=== PATIENT | male | born 1990 | race Caucasian/White ===

== ENCOUNTER 2016-06-06 14:24 | Emergency (ER) | payer BC ==
[2016-06-06 15:32] LABS: BASO % 0.3 % (0.0-1.0); EOS # 0.1 K/mm3 (0.0-0.50); EOS % 0.4 % (0.0-3.0); LARGE UNSTAINED CELL # 0.5 K/mm3 (0.0-0.4); LARGE UNSTAINED CELL % 3.4 % (0.0-4.0); LYMPH # 1.3 K/mm3 (1.5-6.5); LYMPH % 9.1 % (24.0-44.0); MEAN CORPUSCULAR HEMOGLOBIN 32.1 pg (27.0-33.0); MEAN CORPUSCULAR HGB CONC 35.8 g/dl (32.0-36.5); MEAN CORPUSCULAR VOLUME 89.5 fl (80.0-96.0); NEUTROPHILS # 11.5 K/mm3 (1.8-7.7); NEUTROPHILS % 79.7 % (36.0-66.0); PLATELET COUNT, AUTOMATED 175 k/mm3 (150-450); RED CELL DISTRIBUTION WIDTH 11.9 % (11.5-14.5); WHITE BLOOD COUNT 14.5 K/mm3 (4.0-10.0)
[2016-06-06 15:49] LABS: ANION GAP 9 MEQ/L (8-16); BLOOD UREA NITROGEN 14 MG/DL (7-18); CALCIUM LEVEL 8.7 MG/DL (8.5-10.1); CARBON DIOXIDE LEVEL 27 MEQ/L (21-32); CHLORIDE LEVEL 103 MEQ/L (98-107); CREATININE FOR GFR 1.17 MG/DL (0.70-1.30); GLOMERULAR FILTRATION RATE > 60.0 (>60); GLUCOSE, FASTING 97 MG/DL (70-105); POTASSIUM SERUM 4.5 MEQ/L (3.5-5.1); SODIUM LEVEL 139 MEQ/L (136-145)
[2016-06-06] MEDS ORDERED: LIDOCAINE 2% MDV 20 ML VIAL As Ordered ONE (16:22)
[2016-06-06 16:34] LABS: ALBUMIN/GLOBULIN RATIO 1.14 (1.00-1.93); ALKALINE PHOSPHATASE 67 U/L (45-117); ALT/SGPT 39 U/L (12-78); AST/SGOT 15 U/L (15-37); BILIRUBIN,DIRECT 0.1 MG/DL (0.0-0.2); BILIRUBIN,TOTAL 0.5 MG/DL (0.2-1.0); TOTAL PROTEIN 7.5 GM/DL (6.4-8.2)
[2016-06-06] MEDS ORDERED: ONDANSETRON 4MG/2ML VIAL (J2405) As Ordered ONE (17:03)
[2016-06-06] MEDS ORDERED: MORPHINE 2 MG/ML 1ML SYRINGE As Ordered ONE (17:03)
[2016-06-06 17:22] LABS: GLUCOSE CSF 65 MG/DL (40-75)
[2016-06-06] MEDS ORDERED: ISOVUE-370 76% 100ML VIAL (Q9967) As Ordered ONE (17:32)
[2016-06-06 17:36] LABS: RBC CSF AUTO 35 /mm3 (0-0); WBC CSF AUTO 1 /mm3 (0-10)
[2016-06-06 17:37] LABS: APPEARANCE, CSF CLEAR (CLEAR); COLOR, CSF COLORLESS (COLORLESS); CSF DIFF IF INDICATED? NO (NO); CSF TUBE# CELL CNT TUBE 1
[2016-06-06 17:38] LABS: CSF DILUENT LOT # 6053
[2016-06-06 17:39] LABS: RBC CSF AUTO 3 /mm3 (0-0); WBC CSF AUTO 0 /mm3 (0-10)
[2016-06-06 17:40] LABS: APPEARANCE, CSF CLEAR (CLEAR); COLOR, CSF COLORLESS (COLORLESS); CSF DIFF IF INDICATED? NO (NO); CSF TUBE# CELL CNT TUBE 4
[2016-06-06 17:41] LABS: CSF DILUENT LOT # 6053
[2016-06-06] MEDS ORDERED: ACETAMINOPHEN 325 MG TAB As Ordered ONE (18:50)
--- NOTE | 2016-06-06 19:00 | REPUSA ---
CLINICAL HISTORY: Abdominal pain. TECHNIQUE: Multiple axial, sagittal and coronal CT images were obtained through the abdomen and pelvi s after administration of intravenous contrast material. Im COMMENTS: The liver is of uniform attenuation without mass or defect. There is no intra or extrahepatic biliary ductal dilatation. The spleen is normal. The gallbladder is within normal limits. The pancreas is of normal contour and attenuation characteristics. There is no evidence of adrenal mass. Both kidneys demonstrate prompt and equal nephrograms. The kidneys are normal in size, shape and conf iguration. There is no evidence of renal or ureteral mass. No renal or ureteral calculi are identifie d. There is no hydroureter or hydronephrosis. No evidence for appendicitis. There are fluid-filled loops of small bowel demonstrating wall thicken ing compatible with enteritis. Jejunum is most severely involved. No evidence for small or large jose wel obstruction. There is no evidence of abdominal ascites or lymphadenopathy. There is no evidence of intrinsic or extrinsic bladder mass. There is no pelvic ascites or lymphadeno linn. Images of the lung bases show no evidence of pleural or parenchymal mass. There are no pleural effusi ons. The bony structures are free of lytic or blastic lesions. IMPRESSION: Enteritis. Infectious and inflammatory etiologies considered. Thank you for your kind referral of this patient.
--- NOTE | 2016-06-06 19:30 | EDDOCDS ---
Nurse's Notes [facility] Name: Mal Wolf Age: 25 yrs Sex: Male : 1990 Arrival Date: 06/06/2016 Time: 14:24 Bed I9 / Private MD: Ekaterina Pimentel Diagnosis: Fever, unspecified;Myalgia;Abdominal and pelvic pain Presentation: 06/06 14:29 Presenting complaint: Patient states: was sent from to rule out meningitis. Reports kr3 has had stiff neck and back with fever for 24 hours. Acute neurological deficits are not present. Mechanism of Injury: No Mechanism of Injury. Adult Sepsis Screening: The patient does not have new or worsening altered mentation. Patient's respiratory rate is less than 22. Systolic blood pressure is greater than 100. Patient has a qSOFA score of 0- Negative Sepsis Screen. Suicide/Homicide risk assessment- the patient denies having any suicidal and/or homicidal ideations and does not present with any other emotional, behavioral or mental health complaints. Status: Patient is not a library services dean or dependent. 14:29 Acuity: DEB Level 3 kr3 14:29 Method Of Arrival: Walkin/Carried/Asstd 3 14:34 Transition of care: Patient was received from [facility]. 3 Triage Assessment: 14:31 General: Appears in no apparent distress, comfortable, Behavior is cooperative. kr3 General: Reports fever for. Pain: Location: head, neck and back Pain currently is 6 out of 10 on a pain scale. Pt Declines HIV testing. Neurological: Level of Consciousness is awake, alert, Reports headache had hallucinations last night. Respiratory: Respiratory effort is even, unlabored. Derm: Skin is normal. Musculoskeletal: Range of motion intact in all extremities. Historical: - Allergies: no known allergies; - Home Meds: 1. ibuprofen 600 mg Oral tab (Last dose: 06/06/2016 11:30) - PMHx: none; - PSHx: achilles tendon surgery; - Social history: Smoking status: Patient states was never smoker of tobacco. No barriers to communication noted, The patient speaks fluent [place]ican, Speaks appropriately for age. - Family history: Not pertinent. - : The pt / caregiver states he / she is not on anticoagulants. Home medication list is obtained from the patient. - Exposure Risk Screening:: None identified. Screenin:26 Screening information is obtained from the patient. Fall risk: No risks identified. dsf Assistance ADL's: requires no assistance with activities of daily living. Abuse/DV Screen: The patient / caregiver reports he/she is: not in a situation that causes fear, pain or injury. Nutritional screening: No deficits noted. Advance Directives: Currently, there is no health care proxy. home support is adequate. Assessment: 16:41 General: Appears in no apparent distress, Behavior is appropriate for age, cooperative. mb9 Pain: Location: neck Pain currently is 6 out of 10 on a pain scale. Quality of pain is described as stiff. Respiratory: Airway is patent Respiratory effort is even, unlabored. 17:34 Reassessment: Patient states symptoms have not improved. General: Appears in no mb9 apparent distress, Behavior is appropriate for age, cooperative. General: pt laying supine.. Pain: Location: left hand and neck Pain currently is 4 out of 10 on a pain scale. Respiratory: Airway is patent Respiratory effort is even, unlabored. 17:49 General: Pt to CT and returned IV site remains patent and clear.. dls 18:52 General: First contact with pt. Pt medicated per orders. Pt states "can I get just one ld5 Tramadol tablet to go home with?" It was explained to pt that he was not up for discharge at this time and the provider would be in to discuss results when it was all available. Will continue to monitor. 19:26 Adult Sepsis Screening: The patient does not have new or worsening altered mentation. dsf Patient's respiratory rate is less than 22. Systolic blood pressure is greater than 100. Patient has a qSOFA score of 0- Negative Sepsis Screen. General: Appears in no apparent distress, Behavior is appropriate for age, cooperative. Pain: Pain currently is 5 out of 10 on a pain scale. Neurological: Level of Consciousness is awake, alert. Cardiovascular: Capillary refill < 3 seconds. Respiratory: Airway is patent Respiratory effort is even, unlabored, Respiratory pattern is regular, symmetrical. Derm: Skin is pink, warm & dry. Vital Signs: 14:26 BP 147 / 73; Pulse 88; Resp 18 S; Temp 99.1(O); Pulse Ox 98% on R/A; Weight 92.99 kg gr2 (R); Height 5 ft. 9 in. (175.26 cm) (R); Pain 8/10; 19:00 BP 143 / 82; Pulse 84; Resp 18; Temp 101.2; Pulse Ox 99% ; Pain 5/10; ajs 14:26 Body Mass Index 30.27 (92.99 kg, 175.26 cm) gr2 Vitals: 14:26 Log In Time: June 06, 2016 at 14:26. gr2 ED Course: 14:26 Patient visited by Latosha Bullard. gr2 14:26 Ekaterina Pimentel is Private Physician. gr2 14:26 Patient moved to Waiting gr2 14:28 Patient visited by Latosha Bullard. gr2 14:28 Patient moved to Pre RCE gr2 14:30 Triage Initiated kr3 15:36 Patient visited by Beau Crystal RN. ml6 15:36 Patient moved to Triage 2 ml6 16:09 Ella Alexander, BRODERICK is Primary Nurse. ml6 16:09 Talisha Weinstein MD is Attending Physician. ml 16:09 Patient visited by Talisha Weinstein MD. ml 16:09 Patient moved to I9 / 22 ml6 16:42 Inserted saline lock: 18 gauge in right forearm and blood collected. The patient mb9 tolerated the procedure well. 17:09 CSF,Cell Count/Diff Sent. js13 17:09 CSF Total Protein Sent. js13 17:09 CSF Glucose Sent. js13 17:09 CSF Culture & Gram Stain Sent. js13 17:34 Patient visited by Khang Casarez,BRODERICK. mb9 18:36 Patient visited by Ella Alexander, BRODERICK. dls 18:41 Patient name changed from Mal\\S\\\\S\\Maryann\\S\\ to Mal\\S\\ \\S\\Maryann. EDMS 18:43 [facility] Payment Agreement was scanned into [employer] and attached to record. ks16 18:55 Patient visited by Kassidy Graves,BRODERICK. ld5 18:58 Ekaterina Pimentel is Referral Physician. ml 19:00 Patient visited by Jaqueline Marshall. ajs 19:04 Patient visited by Aj Howell PCA. kb5 19:14 CT ABD & PELVIS: IV Contrast Only Returned. EDMS 19:26 The patient / caregiver is instructed regarding the plan of care and ED course. dsf 19:26 Discontinued lock intact, bleeding controlled, pressure dressing applied, No dsf redness/swelling at site. No procedures done that require assistance. Administered Medications: 16:41 Drug: NS 0.9% 1000 ml [sodium chloride 0.9 % intravenous solution] Route: IV; Rate: mb9 bolus; Site: right antecubital; 19:28 Follow up: IV Status: Infusion discontinued; IV Intake: 800ml dsf 17:09 Drug: Ondansetron 4 mg [ondansetron HCl 2 mg/mL intravenous solution (2 mL)] Route: js13 IVP; Site: right antecubital; 17:09 Drug: morphine 2 mg [morphine 2 mg/mL intravenous cartridge (1 mL)] Route: IVP; Site: js13 right antecubital; 18:52 Drug: Acetaminophen 975 mg [acetaminophen 325 mg tablet (3 tabs)] Route: PO; ld5 Intake: 19:28 IV: 800.00ml; Total: 800.00ml. dsf Order Results: Lab Order: -Influenza A&B Rapid Antigen - Nose; SPEC'M 06/06/16 15:04 Test: INFLUENZA A RAPID SCR by ICA; Value: INFLUENZA A RESULTS NEGATIVE; Status: F Test: INFLUENZA A RAPID SCR by ICA; Value: Comments:; Status: F Test: INFLUENZA B RAPID SCR by ICA; Value: INFLUENZA B RESULTS NEGATIVE; Status: F Test Note: ; The Influenza test is a direct rapid immunoassay for the qualitative detection of Influenza viral antigen. Cell culture (Viral Culture) testing should be considered to confirm NEGATIVE results and to assist in detecting other viruses that can provide similar clinical symptoms. Please contact the lab within 24 hours ([phone]) if confirmatory testing is desired. Lab Order: BMP; SPEC'M 06/06/16 15:19 Test: GLUCOSE, FASTING; Value: 97; Range: 70-105; Units: MG/DL; Status: F Test: BLOOD UREA NITROGEN; Value: 14; Range: 7-18; Units: MG/DL; Status: F Test: CREATININE FOR GFR; Value: 1.17; Range: 0.70-1.30; Units: MG/DL; Status: F Test: GLOMERULAR FILTRATION RATE; Value: > 60.0; Range: >60; Status: F Test: SODIUM LEVEL; Value: 139; Range: 136-145; Units: MEQ/L; Status: F Test: POTASSIUM SERUM; Value: 4.5; Range: 3.5-5.1; Units: MEQ/L; Status: F Test: CHLORIDE LEVEL; Value: 103; Range: 98-107; Units: MEQ/L; Status: F Test: CARBON DIOXIDE LEVEL; Value: 27; Range: 21-32; Units: MEQ/L; Status: F Test: ANION GAP; Value: 9; Range: 8-16; Units: MEQ/L; Status: F Test: CALCIUM LEVEL; Value: 8.7; Range: 8.5-10.1; Units: MG/DL; Status: F Test Note: ; Units are mL/min/1.73 m2 Chronic Kidney Disease Staging per NKF: Stage I & II GFR >=60 Normal to Mildly Decreased Stage III GFR 30-59 Moderately Decreased Stage IV GFR 15-29 Severely Decreased Stage V GFR <15 Very Little GFR Left ESRD GFR <15 on [employer]END[employer] DIVISION Lab Order: CBC with Diff; SPEC'M 06/06/16 15:19 Test: WHITE BLOOD COUNT; Value: 14.5; Range: 4.0-10.0; Abnormal: Above high normal; Units: K/mm3; Status: F Test: RED BLOOD COUNT; Value: 5.12; Range: 4.30-6.10; Units: M/mm3; Status: F Test: HEMOGLOBIN; Value: 16.4; Range: 14.0-18.0; Units: g/dl; Status: F Test: HEMATOCRIT; Value: 45.8; Range: 42.0-52.0; Units: %; Status: F Test: MEAN CORPUSCULAR VOLUME; Value: 89.5; Range: 80.0-96.0; Units: fl; Status: F Test: MEAN CORPUSCULAR HEMOGLOBIN; Value: 32.1; Range: 27.0-33.0; Units: pg; Status: F Test: MEAN CORPUSCULAR HGB CONC; Value: 35.8; Range: 32.0-36.5; Units: g/dl; Status: F Test: RED CELL DISTRIBUTION WIDTH; Value: 11.9; Range: 11.5-14.5; Units: %; Status: F Test: PLATELET COUNT, AUTOMATED; Value: 175; Range: 150-450; Units: k/mm3; Status: F Test: NEUTROPHILS %; Value: 79.7; Range: 36.0-66.0; Abnormal: Above high normal; Units: %; Status: F Test: LYMPH %; Value: 9.1; Range: 24.0-44.0; Abnormal: Below low normal; Units: %; Status: F Test: MONO %; Value: 7.0; Range: 0.0-5.0; Abnormal: Above high normal; Units: %; Status: F Test: EOS %; Value: 0.4; Range: 0.0-3.0; Units: %; Status: F Test: BASO %; Value: 0.3; Range: 0.0-1.0; Units: %; Status: F Test: LARGE UNSTAINED CELL %; Value: 3.4; Range: 0.0-4.0; Units: %; Status: F Test: NEUTROPHILS #; Value: 11.5; Range: 1.8-7.7; Abnormal: Above high normal; Units: K/mm3; Status: F Test: LYMPH #; Value: 1.3; Range: 1.5-6.5; Abnormal: Below low normal; Units: K/mm3; Status: F Test: MONO #; Value: 1.0; Range: 0.0-0.8; Abnormal: Above high normal; Units: K/mm3; Status: F Test: EOS #; Value: 0.1; Range: 0.0-0.50; Units: K/mm3; Status: F Test: BASO #; Value: 0.0; Range: 0.0-0.2; Units: K/mm3; Status: F Test: LARGE UNSTAINED CELL #; Value: 0.5; Range: 0.0-0.4; Abnormal: Above high normal; Units: K/mm3; Status: F Lab Order: LIPASE; SPEC'M 06/06/16 15:19 Test: LIPASE; Value: 142; Range: 73-393; Units: U/L; Status: F Lab Order: LIVER PROFILE; SPEC'M 06/06/16 15:19 Test: AST/SGOT; Value: 15; Range: 15-37; Units: U/L; Status: F Test: ALT/SGPT; Value: 39; Range: 12-78; Units: U/L; Status: F Test: ALKALINE PHOSPHATASE; Value: 67; Range: 45-117; Units: U/L; Status: F Test: BILIRUBIN,TOTAL; Value: 0.5; Range: 0.2-1.0; Units: MG/DL; Status: F Test: BILIRUBIN,DIRECT; Value: 0.1; Range: 0.0-0.2; Units: MG/DL; Status: F Test: TOTAL PROTEIN; Value: 7.5; Range: 6.4-8.2; Units: GM/DL; Status: F Test: ALBUMIN; Value: 4.0; Range: 3.2-5.2; Units: GM/DL; Status: F Test: ALBUMIN/GLOBULIN RATIO; Value: 1.14; Range: 1.00-1.93; Status: F Lab Order: CSF Culture & Gram Stain; SPEC'M 06/06/16 17:05 Test: GRAM STAIN; Value: GRAM STAIN RESULT; Status: F Test: GRAM STAIN; Value: NO ORGANISMS SEEN; Status: F Test: GRAM STAIN; Value: NO WBCs SEEN; Status: F Lab Order: CSF Glucose; SPEC'M 06/06/16 17:05 Test: GLUCOSE CSF; Value: 65; Range: 40-75; Units: MG/DL; Status: F Test: CSF TUBE# GLU; Value: TUBE 3; Status: F Lab Order: CSF Total Protein; SPEC'M 06/06/16 17:05 Test: TOTAL PROTEIN,CSF; Value: 33.1; Range: 15-45; Units: MG/DL; Status: F Test: CSF TUBE# TP; Value: TUBE 3; Status: F Lab Order: CSF,Cell Count/Diff; SPEC'M 06/06/16 17:05 Test: CSF TUBE# CELL CNT; Value: TUBE 1; Status: F Test: COLOR, CSF; Value: COLORLESS; Range: COLORLESS; Status: F Test: APPEARANCE, CSF; Value: CLEAR; Range: CLEAR; Status: F Test: WBC CSF AUTO; Value: 1; Range: 0-10; Units: /mm3; Status: F Test: RBC CSF AUTO; Value: 35; Range: 0-0; Abnormal: Above high normal; Units: /mm3; Status: F Test Note: ; Differentials not performed if WBC count is < 10 . Lab Order: CELL COUNT/DIFF CSF; SPEC'M 06/06/16 17:05 Test: CSF TUBE# CELL CNT; Value: TUBE 4; Status: F Test: COLOR, CSF; Value: COLORLESS; Range: COLORLESS; Status: F Test: APPEARANCE, CSF; Value: CLEAR; Range: CLEAR; Status: F Test: WBC CSF AUTO; Value: 0; Range: 0-10; Units: /mm3; Status: F Test: RBC CSF AUTO; Value: 3; Range: 0-0; Abnormal: Above high normal; Units: /mm3; Status: F Test Note: ; Differentials not performed if WBC count is < 10 . Radiology Order: CT ABD & PELVIS: IV Contrast Only Test: CT ABD & PELVIS: IV Contrast Only REASON FOR EXAMINATION: abdominal pain; ; CLINICAL HISTORY: Abdominal pain.; TECHNIQUE: Multiple axial, sagittal and coronal CT images were obtained through the abdomen and pelvi; s after administration of intravenous contrast material. Im; COMMENTS:; The liver is of uniform attenuation without mass or defect. There is no intra or extrahepatic biliary; ductal dilatation. The spleen is normal. The gallbladder is within normal limits. The pancreas is of; normal contour and attenuation characteristics. There is no evidence of adrenal mass.; Both kidneys demonstrate prompt and equal nephrograms. The kidneys are normal in size, shape and conf; iguration. There is no evidence of renal or ureteral mass. No renal or ureteral calculi are identifie; d. There is no hydroureter or hydronephrosis.; No evidence for appendicitis. There are fluid-filled loops of small bowel demonstrating wall thicken; ing compatible with enteritis. Jejunum is most severely involved. No evidence for small or large jose; wel obstruction. There is no evidence of abdominal ascites or lymphadenopathy.; There is no evidence of intrinsic or extrinsic bladder mass. There is no pelvic ascites or lymphadeno; linn.; Images of the lung bases show no evidence of pleural or parenchymal mass. There are no pleural effusi; ons.; The bony structures are free of lytic or blastic lesions.; IMPRESSION:; Enteritis. Infectious and inflammatory etiologies considered.; Thank you for your kind referral of this patient.; ; Outcome: 18:59 Discharge ordered by Provider. 19:26 Discharge Assessment: Patient awake, alert and oriented x 3. No cognitive and/or dsf functional deficits noted. Patient verbalized understanding of disposition instructions. patient administered narcotics - no. The following High Risk Discharge criteria are identified: None. Discharged to home ambulatory, with significant other. Property sent home with patient. 19:29 Condition: stable. Discharge instructions given to patient, Instructed on discharge dsf instructions, follow up and referral plans. medication usage, Demonstrated understanding of instructions, Pt was receptive of discharge instructions/ teaching. No special radiology studies were completed. 19:29 Patient left the ED. dsf Signatures: Dispatcher [employer] EDMS Talisha Weinstein MD MD ml Ella Alexander, RN RN dls Ronda Bean,RN RN kr3 Aj Howell, CANDELARIO LOCOMOTIVE MECHANIC APPRENTICE kb5 Beau Crystal RN RN ml6 Kassidy Graves,RN RN ld5 Ashley GoodRN RN f Jaqueline Marshall Jennifer,RN RN js13 Latosha Bullard 2 Khang Casarez,RN RN mb9 Rachel Perez, Reg Reg [email or web address] Corrections: (The following items were deleted from the chart) 14:34 14:29 Transition of care: patient was not received from another setting of care. kr3 kr3 MTDD
--- NOTE | 2016-06-06 19:30 | EDDOCDS ---
Physician Documentation [facility] Name: Mal Wolf Age: 25 yrs Sex: Male : 1990 Arrival Date: 06/06/2016 Time: 14:24 Bed I9 / Private MD: Ekaterina Pimentel Disposition: 06/06/16 18:59 Discharged to Home/Self Care. Impression: Fever, unspecified, Myalgia, Abdominal and pelvic pain. - Condition is Stable. - Discharge Instructions: Abdominal Pain, Adult, Fever, Adult, Muscle Pain, Adult. - Medication Reconciliation, Local Pharmacy Hours form. - Follow up: Ekaterina Pimentel; When: 1 - 2 days. - Problem is new. - Symptoms have improved. - Notes: take tylenol and motrin as discussed - alternating as discussed. follow up with your primary phsyician as discussed. drink lots of fluids Historical: - Allergies: no known allergies; - Home Meds: 1. ibuprofen 600 mg Oral tab (Last dose: 06/06/2016 11:30) - PMHx: none; - PSHx: achilles tendon surgery; - Social history: Smoking status: Patient states was never smoker of tobacco. No barriers to communication noted, The patient speaks fluent Croatian, Speaks appropriately for age. - Family history: Not pertinent. - : The pt / caregiver states he / she is not on anticoagulants. Home medication list is obtained from the patient. - Exposure Risk Screening:: None identified. Vital Signs: 06/06 14:26 BP 147 / 73; Pulse 88; Resp 18 S; Temp 99.1(O); Pulse Ox 98% on R/A; Weight 92.99 kg / gr2 205.01 lbs (R); Height 5 ft. 9 in. (175.26 cm) (R); Pain 8/10; 19:00 BP 143 / 82; Pulse 84; Resp 18; Temp 101.2; Pulse Ox 99% ; Pain 5/10; ajs 14:26 Body Mass Index 30.27 (92.99 kg, 175.26 cm) gr2 Procedures: 18:53 Lumbar Puncture: Patient placed in left lateral decubitus position. Prepped with ml Betadine. Draped using sterile technique. 22 g spinal needle used to withdraw csf on stick one.. clear fluid. Puncture site dressed with band aid, Patient tolerated. MDM: 14:51 BMP Ordered. EDMS 14:51 CBC with Diff Ordered. EDMS 14:51 -Blood Culture Ordered. EDMS 14:52 -Influenza A&B Rapid Antigen - Nose Ordered. EDMS 16:07 CBC with Diff Reviewed. ml 16:07 -Influenza A&B Rapid Antigen - Nose Reviewed. ml 16:07 BMP Reviewed. ml 16:20 IV Saline Lock ordered. ml 16:20 NS 0.9% 1000 ml IV at bolus once ordered. ml 16:24 LIPASE Ordered. EDMS 16:24 LIVER PROFILE Ordered. EDMS 17:03 Ondansetron 4 mg IVP once ordered. ml 17:03 morphine 2 mg IVP once ordered. ml 17:03 Please add cell count on tube #4 into amaysim ordered. ml 17:04 BMP Reviewed. ml 17:04 LIPASE Reviewed. ml 17:04 LIVER PROFILE Reviewed. ml 17:04 CSF Glucose Ordered. EDMS 17:04 CSF Total Protein Ordered. EDMS 17:04 CSF,Cell Count/Diff Ordered. EDMS 17:04 CSF Culture & Gram Stain Ordered. EDMS 17:05 Please add cell count on tube #4 into amaysim complete. ar3 17:05 CT ABD & PELVIS: IV Contrast Only Ordered. EDMS 17:18 CELL COUNT/DIFF CSF Ordered. EDMS 17:27 Financial registration complete. ks16 18:00 CSF,Cell Count/Diff Reviewed. ml 18:00 CELL COUNT/DIFF CSF Reviewed. ml 18:00 CSF Glucose Reviewed. ml 18:00 CSF Total Protein Reviewed. ml 18:43 [facility] Payment Agreement was scanned into [employer] and attached to record. ks16 18:46 Acetaminophen Tablet 975 mg PO once ordered. ml 18:52 CSF Culture & Gram Stain Reviewed. ml Administered Medications: 16:41 Drug: NS 0.9% 1000 ml [sodium chloride 0.9 % intravenous solution] Route: IV; Rate: mb9 bolus; Site: right antecubital; 19:28 Follow up: IV Status: Infusion discontinued; IV Intake: 800ml dsf 17:09 Drug: Ondansetron 4 mg [ondansetron HCl 2 mg/mL intravenous solution (2 mL)] Route: js13 IVP; Site: right antecubital; 17:09 Drug: morphine 2 mg [morphine 2 mg/mL intravenous cartridge (1 mL)] Route: IVP; Site: [facility] right antecubital; 18:52 Drug: Acetaminophen 975 mg [acetaminophen 325 mg tablet (3 tabs)] Route: PO; ld5 Signatures: Dispatcher [employer] EDMS Talisha Weinstein MD MD ml Ronda Bean,RN RN kr3 Pippa Styles, SNAKE CHARMER SNAKE CHARMER ar3 Ashley Good RN RN dsf Rachel Perez, Reg Reg ks16 Kassidy Graves RN ld5 Melissa Stringer RN js13 Khang Casarez RN mb9 The chart was reviewed and I authenticate all verbal orders and agree with the evaluation and treatment provided.Corrections: (The following items were deleted from the chart) 16:23 16:21 LIVER PROFILE+LAB ordered. EDMS EDMS 16:24 16:21 LIPASE+LAB ordered. EDMS EDMS Attachments: 18:43 [facility] Payment Agreement [email or web address] MTDD
--- NOTE | 2016-06-08 20:31 | EDDOCDS ---
Physician Documentation [facility] Name: Mal Wolf Age: 25 yrs Sex: Male : 1990 Arrival Date: 06/06/2016 Time: 14:24 Bed I9 / Private MD: Ekaterina Pimentel Disposition: 06/06/16 18:59 Discharged to Home/Self Care. Impression: Fever, unspecified, Myalgia, Abdominal and pelvic pain. - Condition is Stable. - Discharge Instructions: Abdominal Pain, Adult, Fever, Adult, Muscle Pain, Adult. - Medication Reconciliation, Local Pharmacy Hours form. - Follow up: Ekaterina Pimentel; When: 1 - 2 days. - Problem is new. - Symptoms have improved. - Notes: take tylenol and motrin as discussed - alternating as discussed. follow up with your primary phsyician as discussed. drink lots of fluids Historical: - Allergies: no known allergies; - Home Meds: 1. ibuprofen 600 mg Oral tab (Last dose: 06/06/2016 11:30) - PMHx: none; - PSHx: achilles tendon surgery; - Social history: Smoking status: Patient states was never smoker of tobacco. No barriers to communication noted, The patient speaks fluent Albanian, Speaks appropriately for age. - Family history: Not pertinent. - : The pt / caregiver states he / she is not on anticoagulants. Home medication list is obtained from the patient. - Exposure Risk Screening:: None identified. Vital Signs: 06/06 14:26 BP 147 / 73; Pulse 88; Resp 18 S; Temp 99.1(O); Pulse Ox 98% on R/A; Weight 92.99 kg / gr2 205.01 lbs (R); Height 5 ft. 9 in. (175.26 cm) (R); Pain 8/10; 19:00 BP 143 / 82; Pulse 84; Resp 18; Temp 101.2; Pulse Ox 99% ; Pain 5/10; ajs 14:26 Body Mass Index 30.27 (92.99 kg, 175.26 cm) gr2 Procedures: 18:53 Lumbar Puncture: Patient placed in left lateral decubitus position. Prepped with ml Betadine. Draped using sterile technique. 22 g spinal needle used to withdraw csf on stick one.. clear fluid. Puncture site dressed with band aid, Patient tolerated. MDM: 14:51 BMP Ordered. EDMS 14:51 CBC with Diff Ordered. EDMS 14:51 -Blood Culture Ordered. EDMS 14:52 -Influenza A&B Rapid Antigen - Nose Ordered. EDMS 16:07 CBC with Diff Reviewed. ml 16:07 -Influenza A&B Rapid Antigen - Nose Reviewed. ml 16:07 BMP Reviewed. ml 16:20 IV Saline Lock ordered. ml 16:20 NS 0.9% 1000 ml IV at bolus once ordered. ml 16:24 LIPASE Ordered. EDMS 16:24 LIVER PROFILE Ordered. EDMS 17:03 Ondansetron 4 mg IVP once ordered. ml 17:03 morphine 2 mg IVP once ordered. ml 17:03 Please add cell count on tube #4 into [employer] ordered. ml 17:04 BMP Reviewed. ml 17:04 LIPASE Reviewed. ml 17:04 LIVER PROFILE Reviewed. ml 17:04 CSF Glucose Ordered. EDMS 17:04 CSF Total Protein Ordered. EDMS 17:04 CSF,Cell Count/Diff Ordered. EDMS 17:04 CSF Culture & Gram Stain Ordered. EDMS 17:05 Please add cell count on tube #4 into [employer] complete. ar3 17:05 CT ABD & PELVIS: IV Contrast Only Ordered. EDMS 17:18 CELL COUNT/DIFF CSF Ordered. EDMS 17:27 Financial registration complete. [email or web address] 18:00 CSF,Cell Count/Diff Reviewed. ml 18:00 CELL COUNT/DIFF CSF Reviewed. ml 18:00 CSF Glucose Reviewed. ml 18:00 CSF Total Protein Reviewed. ml 18:43 [facility] Payment Agreement was scanned into [employer] and attached to record. [email or web address] 18:46 Acetaminophen Tablet 975 mg PO once ordered. ml 18:52 CSF Culture & Gram Stain Reviewed. ml 21:38 T-Sheet-- Draft Copy was scanned into [employer] and attached to record. klr 06/07 11:18 Consents was scanned into [employer] and attached to record. gb 11:19 Radiology Report was scanned into [employer] and attached to record. gb Administered Medications: 06/06 16:41 Drug: NS 0.9% 1000 ml [sodium chloride 0.9 % intravenous solution] Route: IV; Rate: mb9 bolus; Site: right antecubital; 19:28 Follow up: IV Status: Infusion discontinued; IV Intake: 800ml dsf 17:09 Drug: Ondansetron 4 mg [ondansetron HCl 2 mg/mL intravenous solution (2 mL)] Route: js13 IVP; Site: right antecubital; 17:09 Drug: morphine 2 mg [morphine 2 mg/mL intravenous cartridge (1 mL)] Route: IVP; Site: js13 right antecubital; 18:52 Drug: Acetaminophen 975 mg [acetaminophen 325 mg tablet (3 tabs)] Route: PO; ld5 Signatures: Dispatcher [employer] EDMS Talisha Weinstein MD MD ml Yenny Arredondo, Reg Reg gb Ronda Bean,RN RN kr3 Pippa Styles, ASSISTANT PURCHASING MANAGER ASSISTANT PURCHASING MANAGER ar3 Ashley Good RN RN dsf Rachel Perez, Reg Reg ks16 Amira León Laura RN ld5 Melissa Stringer RN js13 Khang Casarez RN mb9 The chart was reviewed and I authenticate all verbal orders and agree with the evaluation and treatment provided.Corrections: (The following items were deleted from the chart) 16:23 16:21 LIVER PROFILE+LAB ordered. EDMS EDMS 16:24 16:21 LIPASE+LAB ordered. EDMS EDMS Attachments: 18:43 [facility] Payment Agreement [email or web address] 21:38 T-Sheet-- Draft Copy klniles Chart Complete [facility]
--- NOTE | 2016-06-08 20:31 | EDDOCDS ---
Physician Documentation [facility] Name: Mal Wolf Age: 25 yrs Sex: Male : 1990 Arrival Date: 06/06/2016 Time: 14:24 Bed I9 / Private MD: Ekaterina Pimentel Disposition: 06/06/16 18:59 Discharged to Home/Self Care. Impression: Fever, unspecified, Myalgia, Abdominal and pelvic pain. - Condition is Stable. - Discharge Instructions: Abdominal Pain, Adult, Fever, Adult, Muscle Pain, Adult. - Medication Reconciliation, Local Pharmacy Hours form. - Follow up: Ekaterina Pimentel; When: 1 - 2 days. - Problem is new. - Symptoms have improved. - Notes: take tylenol and motrin as discussed - alternating as discussed. follow up with your primary phsyician as discussed. drink lots of fluids Historical: - Allergies: no known allergies; - Home Meds: 1. ibuprofen 600 mg Oral tab (Last dose: 06/06/2016 11:30) - PMHx: none; - PSHx: achilles tendon surgery; - Social history: Smoking status: Patient states was never smoker of tobacco. No barriers to communication noted, The patient speaks fluent Japanese, Speaks appropriately for age. - Family history: Not pertinent. - : The pt / caregiver states he / she is not on anticoagulants. Home medication list is obtained from the patient. - Exposure Risk Screening:: None identified. Vital Signs: 06/06 14:26 BP 147 / 73; Pulse 88; Resp 18 S; Temp 99.1(O); Pulse Ox 98% on R/A; Weight 92.99 kg / gr2 205.01 lbs (R); Height 5 ft. 9 in. (175.26 cm) (R); Pain 8/10; 19:00 BP 143 / 82; Pulse 84; Resp 18; Temp 101.2; Pulse Ox 99% ; Pain 5/10; ajs 14:26 Body Mass Index 30.27 (92.99 kg, 175.26 cm) gr2 Procedures: 18:53 Lumbar Puncture: Patient placed in left lateral decubitus position. Prepped with ml Betadine. Draped using sterile technique. 22 g spinal needle used to withdraw csf on stick one.. clear fluid. Puncture site dressed with band aid, Patient tolerated. MDM: 14:51 BMP Ordered. EDMS 14:51 CBC with Diff Ordered. EDMS 14:51 -Blood Culture Ordered. EDMS 14:52 -Influenza A&B Rapid Antigen - Nose Ordered. EDMS 16:07 CBC with Diff Reviewed. ml 16:07 -Influenza A&B Rapid Antigen - Nose Reviewed. ml 16:07 BMP Reviewed. ml 16:20 IV Saline Lock ordered. ml 16:20 NS 0.9% 1000 ml IV at bolus once ordered. ml 16:24 LIPASE Ordered. EDMS 16:24 LIVER PROFILE Ordered. EDMS 17:03 Ondansetron 4 mg IVP once ordered. ml 17:03 morphine 2 mg IVP once ordered. ml 17:03 Please add cell count on tube #4 into [employer] ordered. ml 17:04 BMP Reviewed. ml 17:04 LIPASE Reviewed. ml 17:04 LIVER PROFILE Reviewed. ml 17:04 CSF Glucose Ordered. EDMS 17:04 CSF Total Protein Ordered. EDMS 17:04 CSF,Cell Count/Diff Ordered. EDMS 17:04 CSF Culture & Gram Stain Ordered. EDMS 17:05 Please add cell count on tube #4 into [employer] complete. ar3 17:05 CT ABD & PELVIS: IV Contrast Only Ordered. EDMS 17:18 CELL COUNT/DIFF CSF Ordered. EDMS 17:27 Financial registration complete. [email or web address] 18:00 CSF,Cell Count/Diff Reviewed. ml 18:00 CELL COUNT/DIFF CSF Reviewed. ml 18:00 CSF Glucose Reviewed. ml 18:00 CSF Total Protein Reviewed. ml 18:43 [facility] Payment Agreement was scanned into [employer] and attached to record. [email or web address] 18:46 Acetaminophen Tablet 975 mg PO once ordered. ml 18:52 CSF Culture & Gram Stain Reviewed. ml 21:38 T-Sheet-- Draft Copy was scanned into [employer] and attached to record. klr 06/07 11:18 Consents was scanned into [employer] and attached to record. gb 11:19 Radiology Report was scanned into [employer] and attached to record. gb Administered Medications: 06/06 16:41 Drug: NS 0.9% 1000 ml [sodium chloride 0.9 % intravenous solution] Route: IV; Rate: mb9 bolus; Site: right antecubital; 19:28 Follow up: IV Status: Infusion discontinued; IV Intake: 800ml dsf 17:09 Drug: Ondansetron 4 mg [ondansetron HCl 2 mg/mL intravenous solution (2 mL)] Route: js13 IVP; Site: right antecubital; 17:09 Drug: morphine 2 mg [morphine 2 mg/mL intravenous cartridge (1 mL)] Route: IVP; Site: js13 right antecubital; 18:52 Drug: Acetaminophen 975 mg [acetaminophen 325 mg tablet (3 tabs)] Route: PO; ld5 Signatures: Dispatcher [employer] EDMS Talisha Weinstein MD MD ml Yenny Arredondo, Reg Reg gb Ronda Bean,RN RN kr3 Pippa Styles, DIRECTOR OF SOCIAL MEDIA MARKETING DIRECTOR OF SOCIAL MEDIA MARKETING ar3 Ashley Good RN RN dsf Rachel Perez, Reg Reg ks16 Amira León Laura RN ld5 Melissa Stringer RN js13 Khang Casarez RN mb9 The chart was reviewed and I authenticate all verbal orders and agree with the evaluation and treatment provided.Corrections: (The following items were deleted from the chart) 16:23 16:21 LIVER PROFILE+LAB ordered. EDMS EDMS 16:24 16:21 LIPASE+LAB ordered. EDMS EDMS Attachments: 18:43 [facility] Payment Agreement [email or web address] 21:38 T-Sheet-- Draft Copy klniles Chart [facility]
--- NOTE | 2016-06-08 20:32 | EDDOCDS ---
Nurse's Notes [facility] Name: Mal Wolf Age: 25 yrs Sex: Male : 1990 Arrival Date: 06/06/2016 Time: 14:24 Bed I9 / Private MD: Ekaterina Pimentel Diagnosis: Fever, unspecified;Myalgia;Abdominal and pelvic pain Presentation: 06/06 14:29 Presenting complaint: Patient states: was sent from to rule out meningitis. Reports kr3 has had stiff neck and back with fever for 24 hours. Acute neurological deficits are not present. Mechanism of Injury: No Mechanism of Injury. Adult Sepsis Screening: The patient does not have new or worsening altered mentation. Patient's respiratory rate is less than 22. Systolic blood pressure is greater than 100. Patient has a qSOFA score of 0- Negative Sepsis Screen. Suicide/Homicide risk assessment- the patient denies having any suicidal and/or homicidal ideations and does not present with any other emotional, behavioral or mental health complaints. Status: Patient is not a service greeter or dependent. 14:29 Acuity: DEB Level 3 kr3 14:29 Method Of Arrival: Walkin/Carried/Asstd 3 14:34 Transition of care: Patient was received from [facility]. 3 Triage Assessment: 14:31 General: Appears in no apparent distress, comfortable, Behavior is cooperative. kr3 General: Reports fever for. Pain: Location: head, neck and back Pain currently is 6 out of 10 on a pain scale. Pt Declines HIV testing. Neurological: Level of Consciousness is awake, alert, Reports headache had hallucinations last night. Respiratory: Respiratory effort is even, unlabored. Derm: Skin is normal. Musculoskeletal: Range of motion intact in all extremities. Historical: - Allergies: no known allergies; - Home Meds: 1. ibuprofen 600 mg Oral tab (Last dose: 06/06/2016 11:30) - PMHx: none; - PSHx: achilles tendon surgery; - Social history: Smoking status: Patient states was never smoker of tobacco. No barriers to communication noted, The patient speaks fluent Panamanian, Speaks appropriately for age. - Family history: Not pertinent. - : The pt / caregiver states he / she is not on anticoagulants. Home medication list is obtained from the patient. - Exposure Risk Screening:: None identified. Screenin:26 Screening information is obtained from the patient. Fall risk: No risks identified. dsf Assistance ADL's: requires no assistance with activities of daily living. Abuse/DV Screen: The patient / caregiver reports he/she is: not in a situation that causes fear, pain or injury. Nutritional screening: No deficits noted. Advance Directives: Currently, there is no health care proxy. home support is adequate. Assessment: 16:41 General: Appears in no apparent distress, Behavior is appropriate for age, cooperative. mb9 Pain: Location: neck Pain currently is 6 out of 10 on a pain scale. Quality of pain is described as stiff. Respiratory: Airway is patent Respiratory effort is even, unlabored. 17:34 Reassessment: Patient states symptoms have not improved. General: Appears in no mb9 apparent distress, Behavior is appropriate for age, cooperative. General: pt laying supine.. Pain: Location: left hand and neck Pain currently is 4 out of 10 on a pain scale. Respiratory: Airway is patent Respiratory effort is even, unlabored. 17:49 General: Pt to CT and returned IV site remains patent and clear.. dls 18:52 General: First contact with pt. Pt medicated per orders. Pt states "can I get just one ld5 Tramadol tablet to go home with?" It was explained to pt that he was not up for discharge at this time and the provider would be in to discuss results when it was all available. Will continue to monitor. 19:26 Adult Sepsis Screening: The patient does not have new or worsening altered mentation. dsf Patient's respiratory rate is less than 22. Systolic blood pressure is greater than 100. Patient has a qSOFA score of 0- Negative Sepsis Screen. General: Appears in no apparent distress, Behavior is appropriate for age, cooperative. Pain: Pain currently is 5 out of 10 on a pain scale. Neurological: Level of Consciousness is awake, alert. Cardiovascular: Capillary refill < 3 seconds. Respiratory: Airway is patent Respiratory effort is even, unlabored, Respiratory pattern is regular, symmetrical. Derm: Skin is pink, warm & dry. Vital Signs: 14:26 BP 147 / 73; Pulse 88; Resp 18 S; Temp 99.1(O); Pulse Ox 98% on R/A; Weight 92.99 kg gr2 (R); Height 5 ft. 9 in. (175.26 cm) (R); Pain 8/10; 19:00 BP 143 / 82; Pulse 84; Resp 18; Temp 101.2; Pulse Ox 99% ; Pain 5/10; ajs 14:26 Body Mass Index 30.27 (92.99 kg, 175.26 cm) gr2 Vitals: 14:26 Log In Time: June 06, 2016 at 14:26. gr2 ED Course: 14:26 Patient visited by Latosha Bullard. gr2 14:26 Ekaterina Pimentel is Private Physician. gr2 14:26 Patient moved to Waiting gr2 14:28 Patient visited by Latosha Bullard. gr2 14:28 Patient moved to Pre RCE gr2 14:30 Triage Initiated kr3 15:36 Patient visited by Beau Crystal RN. ml6 15:36 Patient moved to Triage 2 ml6 16:09 Ella Alexander, BRODERICK is Primary Nurse. ml6 16:09 Talisha Weinstein MD is Attending Physician. ml 16:09 Patient visited by Talisha Weinstein MD. ml 16:09 Patient moved to I9 / 22 ml6 16:42 Inserted saline lock: 18 gauge in right forearm and blood collected. The patient mb9 tolerated the procedure well. 17:09 CSF,Cell Count/Diff Sent. js13 17:09 CSF Total Protein Sent. js13 17:09 CSF Glucose Sent. js13 17:09 CSF Culture & Gram Stain Sent. js13 17:34 Patient visited by Khang Casarez,BRODERICK. mb9 18:36 Patient visited by Ella Alexander, BRODERICK. dls 18:41 Patient name changed from Mal\\S\\\\S\\Maryann\\S\\ to Mal\\S\\ \\S\\Maryann. EDMS 18:43 [facility] Payment Agreement was scanned into [employer] and attached to record. ks16 18:55 Patient visited by Kassidy Graves,BRODERICK. ld5 18:58 Ekaterina Pimentel is Referral Physician. ml 19:00 Patient visited by Jaqueline Marshall. ajs 19:04 Patient visited by Aj Howell PCA. kb5 19:14 CT ABD & PELVIS: IV Contrast Only Returned. EDMS 19:26 The patient / caregiver is instructed regarding the plan of care and ED course. dsf 19:26 Discontinued lock intact, bleeding controlled, pressure dressing applied, No dsf redness/swelling at site. No procedures done that require assistance. 21:38 T-Sheet-- Draft Copy was scanned into [employer] and attached to record. klr 06/07 11:18 Consents was scanned into [employer] and attached to record. gb 11:19 Radiology Report was scanned into [employer] and attached to record. gb Administered Medications: 06/06 16:41 Drug: NS 0.9% 1000 ml [sodium chloride 0.9 % intravenous solution] Route: IV; Rate: mb9 bolus; Site: right antecubital; 19:28 Follow up: IV Status: Infusion discontinued; IV Intake: 800ml dsf 17:09 Drug: Ondansetron 4 mg [ondansetron HCl 2 mg/mL intravenous solution (2 mL)] Route: js13 IVP; Site: right antecubital; 17:09 Drug: morphine 2 mg [morphine 2 mg/mL intravenous cartridge (1 mL)] Route: IVP; Site: js13 right antecubital; 18:52 Drug: Acetaminophen 975 mg [acetaminophen 325 mg tablet (3 tabs)] Route: PO; ld5 Attachments: 06/07 11:18 Consents gb Intake: 06/06 19:28 IV: 800.00ml; Total: 800.00ml. dsf Order Results: Lab Order: -Blood Culture; SPEC'M 06/06/16 15:19 Test: BLOOD CULTURE; Value: No growth after 24 hours . All specimens observed; Status: F Test: BLOOD CULTURE; Value: for 5 days. Results final at that time.; Status: F Test: BLOOD CULTURE; Value: No Growth after 48 hours. All Specimens observed; Status: F Test: BLOOD CULTURE; Value: for 7 days. Results final at that time.; Status: F Lab Order: -Influenza A&B Rapid Antigen - Nose; SPEC'M 06/06/16 15:04 Test: INFLUENZA A RAPID SCR by ICA; Value: INFLUENZA A RESULTS NEGATIVE; Status: F Test: INFLUENZA A RAPID SCR by ICA; Value: Comments:; Status: F Test: INFLUENZA B RAPID SCR by ICA; Value: INFLUENZA B RESULTS NEGATIVE; Status: F Test Note: ; The Influenza test is a direct rapid immunoassay for the qualitative detection of Influenza viral antigen. Cell culture (Viral Culture) testing should be considered to confirm NEGATIVE results and to assist in detecting other viruses that can provide similar clinical symptoms. Please contact the lab within 24 hours ([phone]) if confirmatory testing is desired. Lab Order: BMP; SPEC'M 06/06/16 15:19 Test: GLUCOSE, FASTING; Value: 97; Range: 70-105; Units: MG/DL; Status: F Test: BLOOD UREA NITROGEN; Value: 14; Range: 7-18; Units: MG/DL; Status: F Test: CREATININE FOR GFR; Value: 1.17; Range: 0.70-1.30; Units: MG/DL; Status: F Test: GLOMERULAR FILTRATION RATE; Value: > 60.0; Range: >60; Status: F Test: SODIUM LEVEL; Value: 139; Range: 136-145; Units: MEQ/L; Status: F Test: POTASSIUM SERUM; Value: 4.5; Range: 3.5-5.1; Units: MEQ/L; Status: F Test: CHLORIDE LEVEL; Value: 103; Range: 98-107; Units: MEQ/L; Status: F Test: CARBON DIOXIDE LEVEL; Value: 27; Range: 21-32; Units: MEQ/L; Status: F Test: ANION GAP; Value: 9; Range: 8-16; Units: MEQ/L; Status: F Test: CALCIUM LEVEL; Value: 8.7; Range: 8.5-10.1; Units: MG/DL; Status: F Test Note: ; Units are mL/min/1.73 m2 Chronic Kidney Disease Staging per NKF: Stage I & II GFR >=60 Normal to Mildly Decreased Stage III GFR 30-59 Moderately Decreased Stage IV GFR 15-29 Severely Decreased Stage V GFR <15 Very Little GFR Left ESRD GFR <15 on GROUP ROOMS COORDINATOR Lab Order: CBC with Diff; SPEC'M 06/06/16 15:19 Test: WHITE BLOOD COUNT; Value: 14.5; Range: 4.0-10.0; Abnormal: Above high normal; Units: K/mm3; Status: F Test: RED BLOOD COUNT; Value: 5.12; Range: 4.30-6.10; Units: M/mm3; Status: F Test: HEMOGLOBIN; Value: 16.4; Range: 14.0-18.0; Units: g/dl; Status: F Test: HEMATOCRIT; Value: 45.8; Range: 42.0-52.0; Units: %; Status: F Test: MEAN CORPUSCULAR VOLUME; Value: 89.5; Range: 80.0-96.0; Units: fl; Status: F Test: MEAN CORPUSCULAR HEMOGLOBIN; Value: 32.1; Range: 27.0-33.0; Units: pg; Status: F Test: MEAN CORPUSCULAR HGB CONC; Value: 35.8; Range: 32.0-36.5; Units: g/dl; Status: F Test: RED CELL DISTRIBUTION WIDTH; Value: 11.9; Range: 11.5-14.5; Units: %; Status: F Test: PLATELET COUNT, AUTOMATED; Value: 175; Range: 150-450; Units: k/mm3; Status: F Test: NEUTROPHILS %; Value: 79.7; Range: 36.0-66.0; Abnormal: Above high normal; Units: %; Status: F Test: LYMPH %; Value: 9.1; Range: 24.0-44.0; Abnormal: Below low normal; Units: %; Status: F Test: MONO %; Value: 7.0; Range: 0.0-5.0; Abnormal: Above high normal; Units: %; Status: F Test: EOS %; Value: 0.4; Range: 0.0-3.0; Units: %; Status: F Test: BASO %; Value: 0.3; Range: 0.0-1.0; Units: %; Status: F Test: LARGE UNSTAINED CELL %; Value: 3.4; Range: 0.0-4.0; Units: %; Status: F Test: NEUTROPHILS #; Value: 11.5; Range: 1.8-7.7; Abnormal: Above high normal; Units: K/mm3; Status: F Test: LYMPH #; Value: 1.3; Range: 1.5-6.5; Abnormal: Below low normal; Units: K/mm3; Status: F Test: MONO #; Value: 1.0; Range: 0.0-0.8; Abnormal: Above high normal; Units: K/mm3; Status: F Test: EOS #; Value: 0.1; Range: 0.0-0.50; Units: K/mm3; Status: F Test: BASO #; Value: 0.0; Range: 0.0-0.2; Units: K/mm3; Status: F Test: LARGE UNSTAINED CELL #; Value: 0.5; Range: 0.0-0.4; Abnormal: Above high normal; Units: K/mm3; Status: F Lab Order: LIPASE; SPEC'M 06/06/16 15:19 Test: LIPASE; Value: 142; Range: 73-393; Units: U/L; Status: F Lab Order: LIVER PROFILE; SPEC'M 06/06/16 15:19 Test: AST/SGOT; Value: 15; Range: 15-37; Units: U/L; Status: F Test: ALT/SGPT; Value: 39; Range: 12-78; Units: U/L; Status: F Test: ALKALINE PHOSPHATASE; Value: 67; Range: 45-117; Units: U/L; Status: F Test: BILIRUBIN,TOTAL; Value: 0.5; Range: 0.2-1.0; Units: MG/DL; Status: F Test: BILIRUBIN,DIRECT; Value: 0.1; Range: 0.0-0.2; Units: MG/DL; Status: F Test: TOTAL PROTEIN; Value: 7.5; Range: 6.4-8.2; Units: GM/DL; Status: F Test: ALBUMIN; Value: 4.0; Range: 3.2-5.2; Units: GM/DL; Status: F Test: ALBUMIN/GLOBULIN RATIO; Value: 1.14; Range: 1.00-1.93; Status: F Lab Order: CSF Culture & Gram Stain; SPEC'M 06/06/16 17:05 Test: GRAM STAIN; Value: GRAM STAIN RESULT; Status: F Test: GRAM STAIN; Value: NO ORGANISMS SEEN; Status: F Test: GRAM STAIN; Value: NO CELLS SEEN; Status: F Test: CSF CULTURE; Value: NG/RIVER RESULTS NO GROWTH AEROBICALLY; Status: F Lab Order: CSF Glucose; SPEC'M 06/06/16 17:05 Test: GLUCOSE CSF; Value: 65; Range: 40-75; Units: MG/DL; Status: F Test: CSF TUBE# GLU; Value: TUBE 3; Status: F Lab Order: CSF Total Protein; SPEC'M 06/06/16 17:05 Test: TOTAL PROTEIN,CSF; Value: 33.1; Range: 15-45; Units: MG/DL; Status: F Test: CSF TUBE# TP; Value: TUBE 3; Status: F Lab Order: CSF,Cell Count/Diff; SPEC'M 06/06/16 17:05 Test: CSF TUBE# CELL CNT; Value: TUBE 1; Status: F Test: COLOR, CSF; Value: COLORLESS; Range: COLORLESS; Status: F Test: APPEARANCE, CSF; Value: CLEAR; Range: CLEAR; Status: F Test: WBC CSF AUTO; Value: 1; Range: 0-10; Units: /mm3; Status: F Test: RBC CSF AUTO; Value: 35; Range: 0-0; Abnormal: Above high normal; Units: /mm3; Status: F Test Note: ; Differentials not performed if WBC count is < 10 . Lab Order: CELL COUNT/DIFF CSF; SPEC'M 06/06/16 17:05 Test: CSF TUBE# CELL CNT; Value: TUBE 4; Status: F Test: COLOR, CSF; Value: COLORLESS; Range: COLORLESS; Status: F Test: APPEARANCE, CSF; Value: CLEAR; Range: CLEAR; Status: F Test: WBC CSF AUTO; Value: 0; Range: 0-10; Units: /mm3; Status: F Test: RBC CSF AUTO; Value: 3; Range: 0-0; Abnormal: Above high normal; Units: /mm3; Status: F Test Note: ; Differentials not performed if WBC count is < 10 . Radiology Order: CT ABD & PELVIS: IV Contrast Only Test: CT ABD & PELVIS: IV Contrast Only REASON FOR EXAMINATION: abdominal pain; ; CLINICAL HISTORY: Abdominal pain.; TECHNIQUE: Multiple axial, sagittal and coronal CT images were obtained through the abdomen and pelvi; s after administration of intravenous contrast material. Im; COMMENTS:; The liver is of uniform attenuation without mass or defect. There is no intra or extrahepatic biliary; ductal dilatation. The spleen is normal. The gallbladder is within normal limits. The pancreas is of; normal contour and attenuation characteristics. There is no evidence of adrenal mass.; Both kidneys demonstrate prompt and equal nephrograms. The kidneys are normal in size, shape and conf; iguration. There is no evidence of renal or ureteral mass. No renal or ureteral calculi are identifie; d. There is no hydroureter or hydronephrosis.; No evidence for appendicitis. There are fluid-filled loops of small bowel demonstrating wall thicken; ing compatible with enteritis. Jejunum is most severely involved. No evidence for small or large jose; wel obstruction. There is no evidence of abdominal ascites or lymphadenopathy.; There is no evidence of intrinsic or extrinsic bladder mass. There is no pelvic ascites or lymphadeno; linn.; Images of the lung bases show no evidence of pleural or parenchymal mass. There are no pleural effusi; ons.; The bony structures are free of lytic or blastic lesions.; IMPRESSION:; Enteritis. Infectious and inflammatory etiologies considered.; Thank you for your kind referral of this patient.; ; Outcome: 18:59 Discharge ordered by Provider. 19:26 Discharge Assessment: Patient awake, alert and oriented x 3. No cognitive and/or dsf functional deficits noted. Patient verbalized understanding of disposition instructions. patient administered narcotics - no. The following High Risk Discharge criteria are identified: None. Discharged to home ambulatory, with significant other. Property sent home with patient. 19:29 Condition: stable. Discharge instructions given to patient, Instructed on discharge dsf instructions, follow up and referral plans. medication usage, Demonstrated understanding of instructions, Pt was receptive of discharge instructions/ teaching. No special radiology studies were completed. 19:29 Patient left the ED. dsf Signatures: Dispatcher [employer] EDMS Talisha Weinstein MD MD ml Ella Alexander, RN RN dls Yenny Arredondo, Reg Reg gb Ronda Bean,RN RN kr3 Aj Howell, BI REPORT DEVELOPER BI REPORT DEVELOPER kb5 Beau Crystal RN RN ml6 Kassidy GravesRN RN tre5 Ashley Good RN RN dsf Jaqueline Marshall Jennifer,RN RN js13 Latosha Bullard gr2 Khang Casarez,RN RN mb9 Rachel Perez, Reg Reg ks16 Amira León klniles Corrections: (The following items were deleted from the chart) 14:34 14:29 Transition of care: patient was not received from another setting of care. kr3 kr3 Chart Complete MTDD
== END 2016-06-06 19:29 | disposition home or self-care (01) ==
LOC: M ED 14:24
DX: R50.9 Fever, unspecified (principal); R10.9 Unspecified abdominal pain; M79.1 Myalgia
CPT/HCPCS: 36415; 62270; 74177; 80048; 80076; 82945; 83690; 84157; 85025; 87015; 87040; 87070; 87205; 87804; 89050; 96361; 96374; 96375; 99284; J2405; Q9967

== ENCOUNTER → 2016-06-06 | Outpatient (CLI) | payer BC ==
--- NOTE | 2016-06-06 13:58 | REP ---
Chest x-ray: Two views. History: Cough and fever. . Comparison study: No comparisons . Findings: The lungs are well inflated and free of infiltrate. The pleural angles are sharp. The heart size is normal. Pulmonary vasculature is not increased. No significant bony abnormality is seen. Impression: Negative chest x-ray. Signed by Hernandez Mckeon MD 06/06/2016 01:50 P
== END ==
LOC: M ADAMS 13:29
PROVIDERS: ATTEND Physician Assistant
DX: R05 Cough (principal); R50.9 Fever, unspecified

== ENCOUNTER → 2016-08-16 | Outpatient (REF) | payer BC | LOC: M LAB REF 13:01 | PROVIDERS: ATTEND Nurse Practitioner Adult Health | DX: J03.01 Acute recurrent streptococcal tonsillitis (principal) ==

== ENCOUNTER → 2016-09-02 | Outpatient (REF) | payer BC | LOC: M LAB REF 17:06 | PROVIDERS: ATTEND Nurse Practitioner Adult Health | DX: J03.01 Acute recurrent streptococcal tonsillitis (principal) ==

== ENCOUNTER → 2019-06-07 | Outpatient (REF) | payer OTHER ==
[2019-06-07 19:34] LABS: INFLUENZA A AMPLIFICATION NEGATIVE (NEGATIVE); INFLUENZA B AMPLIFICATION NEGATIVE (NEGATIVE)
== END ==
LOC: M LAB REF 16:39
PROVIDERS: ATTEND Nurse Practitioner Adult Health
DX: J06.9 Acute upper respiratory infection, unspecified (principal)